=== PATIENT | female | born 1965 | race Hispanic/Latino ===

== ENCOUNTER 2023-02-20 08:12 | Emergency (ER) | payer OTHER | END 2023-02-20 09:49 | disposition home or self-care (01) | LOC: CSHERS 08:12 | DX: S93.402A Sprain of unspecified ligament of left ankle, initial encounter (principal); S53.402A Unspecified sprain of left elbow, initial encounter; E11.40 Type 2 diabetes mellitus with diabetic neuropathy, unspecified; W18.30XA Fall on same level, unspecified, initial encounter ==